=== PATIENT | male | born 1995 | race Caucasian/White ===

== ENCOUNTER 2016-12-28 16:38 | Emergency (ER) | payer BC ==
[2016-12-28] MEDS ORDERED: TETRACAINE 0.5% OPHTH SOLN 4ML As Ordered ONE (17:10)
[2016-12-28] MEDS ORDERED: IRRIGATION OPHTH SOLN (EYE WASH) 120ML As Ordered ONE (17:10)
[2016-12-28] MEDS ORDERED: FLUORESCEIN OPHTH 1 MG STRIP As Ordered ONE (17:10)
[2016-12-28] MEDS ORDERED: GENTAMICIN 0.3% OPHTH SOL 5 ML BTL As Ordered ONE (17:37)
--- NOTE | 2016-12-28 18:01 | EDDOCDS ---
Nurse's Notes [facility] Name: Asael Dee Age: 21 yrs Sex: Male : 1995 Arrival Date: 12/28/2016 Time: 16:38 Bed I10 / 23 Private MD: NO PRIMARY PHYSICIAN, . Diagnosis: Injury of conjunctiva and corneal abrasion without foreign body, left eye Presentation: 12/28 16:40 Presenting complaint: Patient states: L eye injury, when cutting tiles a piece of tile rs3 got into L eye. L eye pain/irriation. Mechanism of Injury: cutting tiles. The patient denies any loss of vision. Adult Sepsis Screening: The patient does not have new or worsening altered mentation. Patient's respiratory rate is less than 22. Systolic blood pressure is greater than 100. Patient has a qSOFA score of 0- Negative Sepsis Screen. Suicide/Homicide risk assessment- the patient denies having any suicidal and/or homicidal ideations and does not present with any other emotional, behavioral or mental health complaints. Status: Patient is not a administrative services director or dependent. Transition of care: patient was not received from another setting of care. 16:40 Acuity: CHUNG Level 4 rs3 16:40 Method Of Arrival: Walkin/Carried/Asstd rs3 Triage Assessment: 16:42 General: Appears in no apparent distress. Pain: Location: left eye. Pt Declines HIV rs3 testing. EENT: Reports pain Pain is 5 out of 10 on a pain scale. Historical: - Allergies: no known allergies; - Home Meds: 1. none - PMHx: none; - PSHx: Carpal Tunnel Repair- Left; - Social history: Smoking status: Patient uses tobacco products, light tobacco smoker. No barriers to communication noted, The patient speaks fluent Australian. - Family history: Not pertinent. - : The pt / caregiver states he / she is not on anticoagulants. Home medication list is obtained from the patient. - Exposure Risk Screening:: None identified. Screenin:18 Screening information is obtained from the patient. Fall risk: No risks identified. kr3 Assistance ADL's: requires no assistance with activities of daily living. Abuse/DV Screen: The patient / caregiver reports he/she is: not in a situation that causes fear, pain or injury. Nutritional screening: No deficits noted. Advance Directives: Currently, there is no health care proxy. home support is adequate. Assessment: 17:19 General: Appears in no apparent distress, comfortable. EENT: Eyes are tearing on left kr3 eye Sclera/Cornea are reddened in left eye. 17:59 Reassessment: Patient states feeling better. Patient states symptoms have improved. mk4 Vital Signs: 16:40 BP 144 / 76; Pulse 92; Resp 16; Temp 97.5(O); Pulse Ox 100% on R/A; Weight 67.13 kg lr2 (R); Height 5 ft. 6 in. (167.64 cm) (R); Pain 9/10; 16:40 Body Mass Index 23.89 (67.13 kg, 167.64 cm) lr2 Vitals: 16:40 Log In Time: December 28, 2016 at 16:38. lr2 Visual Acuity: 17:18 Left Eye Visual acuity 20/25, ; Right Eye Visual acuity 20/25, ; Without Lenses; kr3 ED Course: 16:39 Patient visited by Dian Lehman. lr2 16:39 NO PRIMARY PHYSICIAN, . is Private Physician. lr2 16:39 Patient moved to Waiting lr2 16:40 Patient moved to Pre RCE lr2 16:42 Triage Initiated rs3 16:43 Patient moved to Triage 2 rs3 17:08 Yuni Hernandez PA-C [facility]. ef1 17:08 Ramon Mendoza MD is Attending Physician. ef1 17:08 Patient visited by Yuni Hernandez PA-C. ef1 17:09 Patient moved to I10 23 jb5 17:19 The patient / caregiver is instructed regarding the plan of care and ED course. Patient kr3 has correct armband on for positive identification. 17:19 No IV's were initiated during this patient's visit. No procedures done that require kr3 assistance. 17:33 Patient visited by Yuni Hernandez PA-C. ef1 17:46 Akira Álvarez is Referral Physician. ef1 17:46 [facility] is Referral Physician. ef1 Administered Medications: 17:47 Drug: Tetracaine (PF) 2 drps [tetracaine HCl (PF) 0.5 % eye drops (2 drps)] {Note: by kr3 Speedy CRESPO} Route: Ophthalmic; Site: right eye; 17:59 Drug: Gentamicin 2 drps [gentamicin 0.3 % eye drops (2 drps)] Route: Ophthalmic; Site: mk4 left eye; Order Results: There are currently no results for this order. Outcome: 17:19 No special radiology studies were completed. kr3 17:46 Discharge ordered by Provider. ef1 17:59 Discharge Assessment: Patient awake, alert and oriented x 3. No cognitive and/or mk4 functional deficits noted. Patient verbalized understanding of disposition instructions. Patient awake and alert. Discharge Assessment: patient administered narcotics - no. The following High Risk Discharge criteria are identified: None. Condition: good Condition: stable. Property sent home with patient. 18:00 Patient left the ED. 4 Signatures: Polly Hernandez,RN RN kr3 Nathalia Echevarria, RALF PROOF CARRIER jb5 Yuni Hernandez, PA-C PA-C ef1 Tiffanie Puga RN RN rs3 Zandra Andrews RN RN mk4 Dian Lehman lr2 MTDD
--- NOTE | 2016-12-28 18:01 | EDDOCDS ---
Physician Documentation [facility] Name: Asael Dee Age: 21 yrs Sex: Male : 1995 Arrival Date: 12/28/2016 Time: 16:38 Bed I10 23 Private MD: NO PRIMARY PHYSICIAN, . Disposition: 12/28/16 17:46 Discharged to Home/Self Care. Impression: Injury of conjunctiva and corneal abrasion without foreign body, left eye. - Condition is Stable. - Discharge Instructions: Corneal Abrasion, Kbvk-[id number], Ear Foreign Body, Bhwo-oy-Adyo. - Prescriptions for Gentamicin 0.3 % Ophthalmic Drops - instill 2 drops by OPHTHALMIC route every 4 hours for 7 days; 1 bottle. - Referral List Call for Appointment, Medication Reconciliation, Local Pharmacy Hours form. - Follow up: Akira Álvarez; When: 1 - 2 days; Reason: Further diagnostic work-up, Recheck today's complaints, Continuance of care. Follow up: [facility] ; When: 1 - 2 days; Reason: Recheck today's complaints, Continuance of care. - Problem is new. - Symptoms have improved. Historical: - Allergies: no known allergies; - Home Meds: 1. none - PMHx: none; - PSHx: Carpal Tunnel Repair- Left; - Social history: Smoking status: Patient uses tobacco products, light tobacco smoker. No barriers to communication noted, The patient speaks fluent Kazakh. - Family history: Not pertinent. - : The pt / caregiver states he / she is not on anticoagulants. Home medication list is obtained from the patient. - Exposure Risk Screening:: None identified. Vital Signs: 12/28 16:40 BP 144 / 76; Pulse 92; Resp 16; Temp 97.5(O); Pulse Ox 100% on R/A; Weight 67.13 kg / lr2 148 lbs (R); Height 5 ft. 6 in. (167.64 cm) (R); Pain 9/10; 16:40 Body Mass Index 23.89 (67.13 kg, 167.64 cm) lr2 Visual Acuity: 17:18 Left Eye Visual acuity 20/25, ; Right Eye Visual acuity 20/25, ; Without Lenses; kr3 MDM: 17:09 Tetracaine (PF) Drops 0.5 % 2 drps Ophthalmic once ordered. ef1 17:09 Flouroscein strips to bedside ordered. ef1 17:09 Visual Acuity ordered. ef1 17:09 Misc. Nursing Order ordered. ef1 17:31 Gentamicin Drops 0.3 % 2 drps Ophthalmic once; left eye please ordered. ef1 Administered Medications: 17:47 Drug: Tetracaine (PF) 2 drps [tetracaine HCl (PF) 0.5 % eye drops (2 drps)] {Note: by reza3 Speedy CRESPO} Route: Ophthalmic; Site: right eye; 17:59 Drug: Gentamicin 2 drps [gentamicin 0.3 % eye drops (2 drps)] Route: Ophthalmic; Site: [facility] left eye; Signatures: Yuni Hernandez PA-C PA-C ef1 Tiffanie Puga RN RN rs3 Zandra Andrews RN RN mk4 Polly Hernandez RN kr3 MTDD
--- NOTE | 2016-12-30 19:01 | EDDOCDS ---
Nurse's Notes [facility] Name: Asael Dee Age: 21 yrs Sex: Male : 1995 Arrival Date: 12/28/2016 Time: 16:38 Bed I10 / 23 Private MD: NO PRIMARY PHYSICIAN, . Diagnosis: Injury of conjunctiva and corneal abrasion without foreign body, left eye Presentation: 12/28 16:40 Presenting complaint: Patient states: L eye injury, when cutting tiles a piece of tile rs3 got into L eye. L eye pain/irriation. Mechanism of Injury: cutting tiles. The patient denies any loss of vision. Adult Sepsis Screening: The patient does not have new or worsening altered mentation. Patient's respiratory rate is less than 22. Systolic blood pressure is greater than 100. Patient has a qSOFA score of 0- Negative Sepsis Screen. Suicide/Homicide risk assessment- the patient denies having any suicidal and/or homicidal ideations and does not present with any other emotional, behavioral or mental health complaints. Status: Patient is not a food service coordinator or dependent. Transition of care: patient was not received from another setting of care. 16:40 Acuity: CHUNG Level 4 rs3 16:40 Method Of Arrival: Walkin/Carried/Asstd rs3 Triage Assessment: 16:42 General: Appears in no apparent distress. Pain: Location: left eye. Pt Declines HIV rs3 testing. EENT: Reports pain Pain is 5 out of 10 on a pain scale. Historical: - Allergies: no known allergies; - Home Meds: 1. none - PMHx: none; - PSHx: Carpal Tunnel Repair- Left; - Social history: Smoking status: Patient uses tobacco products, light tobacco smoker. No barriers to communication noted, The patient speaks fluent Martiniquais. - Family history: Not pertinent. - : The pt / caregiver states he / she is not on anticoagulants. Home medication list is obtained from the patient. - Exposure Risk Screening:: None identified. Screenin:18 Screening information is obtained from the patient. Fall risk: No risks identified. kr3 Assistance ADL's: requires no assistance with activities of daily living. Abuse/DV Screen: The patient / caregiver reports he/she is: not in a situation that causes fear, pain or injury. Nutritional screening: No deficits noted. Advance Directives: Currently, there is no health care proxy. home support is adequate. Assessment: 17:19 General: Appears in no apparent distress, comfortable. EENT: Eyes are tearing on left kr3 eye Sclera/Cornea are reddened in left eye. 17:59 Reassessment: Patient states feeling better. Patient states symptoms have improved. mk4 Vital Signs: 16:40 BP 144 / 76; Pulse 92; Resp 16; Temp 97.5(O); Pulse Ox 100% on R/A; Weight 67.13 kg lr2 (R); Height 5 ft. 6 in. (167.64 cm) (R); Pain 9/10; 16:40 Body Mass Index 23.89 (67.13 kg, 167.64 cm) lr2 Vitals: 16:40 Log In Time: December 28, 2016 at 16:38. lr2 Visual Acuity: 17:18 Left Eye Visual acuity 20/25, ; Right Eye Visual acuity 20/25, ; Without Lenses; kr3 ED Course: 16:39 Patient visited by Dian Lehman. lr2 16:39 NO PRIMARY PHYSICIAN, . is Private Physician. lr2 16:39 Patient moved to Waiting lr2 16:40 Patient moved to Pre RCE lr2 16:42 Triage Initiated rs3 16:43 Patient moved to Triage 2 rs3 17:08 Yuni Hernandez PA-C is PHCP. ef1 17:08 Ramon Mendoza MD is Attending Physician. ef1 17:08 Patient visited by Yuni Hernandez PA-C. ef1 17:09 Patient moved to I10 23 jb5 17:19 The patient / caregiver is instructed regarding the plan of care and ED course. Patient kr3 has correct armband on for positive identification. 17:19 No IV's were initiated during this patient's visit. No procedures done that require kr3 assistance. 17:33 Patient visited by Yuni Hernandez PA-C. ef1 17:46 Akira Álvarez is Referral Physician. ef1 17:46 [facility] is Referral Physician. ef1 12/29 11:56 T-Sheet-- Draft Copy was scanned into [employer] and attached to record. gb Administered Medications: 12/28 17:47 Drug: Tetracaine (PF) 2 drps [tetracaine HCl (PF) 0.5 % eye drops (2 drps)] {Note: by kr3 Speedy CRESPO} Route: Ophthalmic; Site: right eye; 17:59 Drug: Gentamicin 2 drps [gentamicin 0.3 % eye drops (2 drps)] Route: Ophthalmic; Site: mk4 left eye; Order Results: There are currently no results for this order. Outcome: 17:19 No special radiology studies were completed. kr3 17:46 Discharge ordered by Provider. ef1 17:59 Discharge Assessment: Patient awake, alert and oriented x 3. No cognitive and/or mk4 functional deficits noted. Patient verbalized understanding of disposition instructions. Patient awake and alert. Discharge Assessment: patient administered narcotics - no. The following High Risk Discharge criteria are identified: None. Condition: good Condition: stable. Property sent home with patient. 18:00 Patient left the ED. mk4 Signatures: Lisa Kaiser, Reg Reg gb Polly Hernandez,RN RN kr3 Nathalia Echevarria, GEOSCIENCE SPECIALIST GEOSCIENCE SPECIALIST jb5 Yuni Hernandez, PA-C PA-C ef1 Tiffanie Puga,IHSAN RN rs3 Zandra Andrews RN RN mk4 Dian Lehman2 Chart Complete MTDD
--- NOTE | 2016-12-30 19:01 | EDDOCDS ---
Physician Documentation [facility] Name: Asael Dee Age: 21 yrs Sex: Male : 1995 Arrival Date: 12/28/2016 Time: 16:38 Bed I10 23 Private MD: NO PRIMARY PHYSICIAN, . Disposition: 12/28/16 17:46 Discharged to Home/Self Care. Impression: Injury of conjunctiva and corneal abrasion without foreign body, left eye. - Condition is Stable. - Discharge Instructions: Corneal Abrasion, Ncsh-kc-Amgf, Ear Foreign Body, Fvok-ww-Qout. - Prescriptions for Gentamicin 0.3 % Ophthalmic Drops - instill 2 drops by OPHTHALMIC route every 4 hours for 7 days; 1 bottle. - Referral List Call for Appointment, Medication Reconciliation, Local Pharmacy Hours form. - Follow up: Akira Álvarez; When: 1 - 2 days; Reason: Further diagnostic work-up, Recheck today's complaints, Continuance of care. Follow up: [facility] ; When: 1 - 2 days; Reason: Recheck today's complaints, Continuance of care. - Problem is new. - Symptoms have improved. Historical: - Allergies: no known allergies; - Home Meds: 1. none - PMHx: none; - PSHx: Carpal Tunnel Repair- Left; - Social history: Smoking status: Patient uses tobacco products, light tobacco smoker. No barriers to communication noted, The patient speaks fluent French. - Family history: Not pertinent. - : The pt / caregiver states he / she is not on anticoagulants. Home medication list is obtained from the patient. - Exposure Risk Screening:: None identified. Vital Signs: 12/28 16:40 BP 144 / 76; Pulse 92; Resp 16; Temp 97.5(O); Pulse Ox 100% on R/A; Weight 67.13 kg / lr2 148 lbs (R); Height 5 ft. 6 in. (167.64 cm) (R); Pain 9/10; 16:40 Body Mass Index 23.89 (67.13 kg, 167.64 cm) lr2 Visual Acuity: 17:18 Left Eye Visual acuity 20/25, ; Right Eye Visual acuity 20/25, ; Without Lenses; kr3 MDM: 17:09 Tetracaine (PF) Drops 0.5 % 2 drps Ophthalmic once ordered. ef1 17:09 Flouroscein strips to bedside ordered. ef1 17:09 Visual Acuity ordered. ef1 17:09 Misc. Nursing Order ordered. ef1 17:31 Gentamicin Drops 0.3 % 2 drps Ophthalmic once; left eye please ordered. ef1 12/29 11:56 T-Sheet-- Draft Copy was scanned into [employer] and attached to record. gb Administered Medications: 12/28 17:47 Drug: Tetracaine (PF) 2 drps [tetracaine HCl (PF) 0.5 % eye drops (2 drps)] {Note: by kr3 Speedy CRESPO} Route: Ophthalmic; Site: right eye; 17:59 Drug: Gentamicin 2 drps [gentamicin 0.3 % eye drops (2 drps)] Route: Ophthalmic; Site: 4 left eye; Signatures: Lisa Kaiser, Yuni Mendez, EDIN PACash ef1 Tiffanie Puga RN RN rs3 Zandra Andrews RN RN mk4 Polly Hernandez RN kr3 The chart was reviewed and I authenticate all verbal orders and agree with the evaluation and treatment provided.Attachments: 12/29 11:56 T-Sheet-- Draft Copy Chart Complete MTDD
--- NOTE | 2016-12-30 19:01 | EDDOCDS ---
Physician Documentation [facility] Name: Asael Dee Age: 21 yrs Sex: Male : 1995 Arrival Date: 12/28/2016 Time: 16:38 Bed I10 23 Private MD: NO PRIMARY PHYSICIAN, . Disposition: 12/28/16 17:46 Discharged to Home/Self Care. Impression: Injury of conjunctiva and corneal abrasion without foreign body, left eye. - Condition is Stable. - Discharge Instructions: Corneal Abrasion, Vqlx-va-Uchx, Ear Foreign Body, Ntkt-jz-Ezxf. - Prescriptions for Gentamicin 0.3 % Ophthalmic Drops - instill 2 drops by OPHTHALMIC route every 4 hours for 7 days; 1 bottle. - Referral List Call for Appointment, Medication Reconciliation, Local Pharmacy Hours form. - Follow up: Akira Álvarez; When: 1 - 2 days; Reason: Further diagnostic work-up, Recheck today's complaints, Continuance of care. Follow up: [facility] ; When: 1 - 2 days; Reason: Recheck today's complaints, Continuance of care. - Problem is new. - Symptoms have improved. Historical: - Allergies: no known allergies; - Home Meds: 1. none - PMHx: none; - PSHx: Carpal Tunnel Repair- Left; - Social history: Smoking status: Patient uses tobacco products, light tobacco smoker. No barriers to communication noted, The patient speaks fluent Czech. - Family history: Not pertinent. - : The pt / caregiver states he / she is not on anticoagulants. Home medication list is obtained from the patient. - Exposure Risk Screening:: None identified. Vital Signs: 12/28 16:40 BP 144 / 76; Pulse 92; Resp 16; Temp 97.5(O); Pulse Ox 100% on R/A; Weight 67.13 kg / lr2 148 lbs (R); Height 5 ft. 6 in. (167.64 cm) (R); Pain 9/10; 16:40 Body Mass Index 23.89 (67.13 kg, 167.64 cm) lr2 Visual Acuity: 17:18 Left Eye Visual acuity 20/25, ; Right Eye Visual acuity 20/25, ; Without Lenses; kr3 MDM: 17:09 Tetracaine (PF) Drops 0.5 % 2 drps Ophthalmic once ordered. ef1 17:09 Flouroscein strips to bedside ordered. ef1 17:09 Visual Acuity ordered. ef1 17:09 Misc. Nursing Order ordered. ef1 17:31 Gentamicin Drops 0.3 % 2 drps Ophthalmic once; left eye please ordered. ef1 12/29 11:56 T-Sheet-- Draft Copy was scanned into [employer] and attached to record. gb Administered Medications: 12/28 17:47 Drug: Tetracaine (PF) 2 drps [tetracaine HCl (PF) 0.5 % eye drops (2 drps)] {Note: by kr3 Speedy CRESPO} Route: Ophthalmic; Site: right eye; 17:59 Drug: Gentamicin 2 drps [gentamicin 0.3 % eye drops (2 drps)] Route: Ophthalmic; Site: 4 left eye; Signatures: Lisa Kaiser, Yuni Mendez, EDIN PACash ef1 Tiffanie Puga RN RN rs3 Zandra Andrews RN RN mk4 Polly Hernandez RN kr3 The chart was reviewed and I authenticate all verbal orders and agree with the evaluation and treatment provided.Attachments: 12/29 11:56 T-Sheet-- Draft Copy Chart Complete MTDD
== END 2016-12-28 18:00 | disposition home or self-care (01) ==
LOC: M ED 16:38
DX: S05.02XA Injury of conjunctiva and corneal abrasion without foreign body, left eye, initial encounter (principal); W45.8XXA Other foreign body or object entering through skin, initial encounter; Y92.019 Unspecified place in single-family (private) house as the place of occurrence of the external cause; Y93.89 Activity, other specified; Y99.8 Other external cause status; F17.210 Nicotine dependence, cigarettes, uncomplicated